=== PATIENT | female | born 1940 | race Asian ===

== ENCOUNTER 2019-05-06 08:20 | Inpatient (IN) | payer MEDICARE ==
[~2019-05-06] VITALS: Ht 152.4 cm; Wt 38.0 kg
[2019-05-06 08:20] VITALS: Ht 152.4 cm; Wt 38.0 kg
[2019-05-06 08:55] LABS: BASOPHIL % 0.3 % (0-2)
[2019-05-06 08:57] LABS: RED CELL DISTRIBUTION WIDTH 18.3 % (11.5-14.5)
[2019-05-06] MEDS ORDERED: PANTOPRAZOLE SO40 M1 PO (09:33)
[2019-05-06] MEDS ORDERED: MEGL PO (09:34)
[2019-05-06] MEDS ORDERED: NOR10 PO (09:34)
[2019-05-06] MEDS ORDERED: NATURE'S BLEND F1 MG PO (09:34)
[2019-05-06] MEDS ORDERED: [UNRECOGNIZED DRUG - OTHER] PO (09:35)
[2019-05-06] MEDS ORDERED: SODIUM BICARBO650 MG PO (09:35)
[2019-05-06] MEDS ORDERED: CALCIUM CIT PO (09:35)
[2019-05-06 09:37] LABS: PLATELET COUNT 508 x10^3mcL (130-400)
[2019-05-06 09:56] LABS: ALKALINE PHOSPHATASE 80 U/L (46-116); ALT/SGPT 24 U/L (14-59); AST/SGOT 23 U/L (15-37); BILIRUBIN TOTAL 0.4 mg/dL (0.20-1.00); CALCIUM 8.8 mg/dL (8.5-10.1); CARBON DIOXIDE 19.2 mmol/L (21-32); CHLORIDE SERUM 97 mmol/L (98-107); GLUCOSE SERUM 173 mg/dL (74-106); SODIUM SERUM 139 mmol/L (136-145)
[2019-05-06 10:01] LABS: ALBUMIN 2.8 g/dL (3.4-5.0)
[2019-05-06 10:02] LABS: POTASSIUM SERUM 7.1 mmol/L (3.5-5.1)
[2019-05-06 10:03] LABS: CREATININE SERUM 9.6 mg/dL (0.6-1.0)
[2019-05-06 13:52] LABS: MAGNESIUM 2.4 mg/dL (1.8-2.4)
[2019-05-06 14:00] VITALS: BP 130/68
[2019-05-06 14:36] LABS: PHOSPHOROUS 6.5 mg/dL (2.5-4.9)
[2019-05-06 17:23] VITALS: BP 150/89
[2019-05-06 21:10] VITALS: BP 153/86
[2019-05-07 06:09] VITALS: BP 131/85
[2019-05-07 08:07] LABS: CALCIUM 9.6 mg/dL (8.5-10.1); CARBON DIOXIDE 23.4 mmol/L (21-32); CHLORIDE SERUM 95 mmol/L (98-107); GLUCOSE SERUM 91 mg/dL (74-106); SODIUM SERUM 139 mmol/L (136-145)
[2019-05-07 08:23] LABS: CREATININE SERUM 7.4 mg/dL (0.6-1.0); POTASSIUM SERUM 7.2 mmol/L (3.5-5.1)
[2019-05-07 08:52] LABS: BASOPHIL % 0 % (0-2); PLATELET COUNT 430 x10^3mcL (130-400)
[2019-05-07 14:49] LABS: CALCIUM 9.3 mg/dL (8.5-10.1); CARBON DIOXIDE 25.8 mmol/L (21-32); CHLORIDE SERUM 96 mmol/L (98-107); GLUCOSE SERUM 103 mg/dL (74-106); SODIUM SERUM 140 mmol/L (136-145)
[2019-05-07 15:44] LABS: CREATININE SERUM 8.1 mg/dL (0.6-1.0); POTASSIUM SERUM 7.2 mmol/L (3.5-5.1)
[2019-05-07 17:04] VITALS: BP 133/82
[2019-05-07 21:14] VITALS: BP 116/69
[2019-05-08 05:59] VITALS: BP 120/76
[2019-05-08 08:40] VITALS: BP 130/77
[2019-05-08 09:51] LABS: CALCIUM 8.7 mg/dL (8.5-10.1); CARBON DIOXIDE 24.2 mmol/L (21-32); CHLORIDE SERUM 92 mmol/L (98-107); GLUCOSE SERUM 73 mg/dL (74-106); SODIUM SERUM 134 mmol/L (136-145)
[2019-05-08 09:53] LABS: CREATININE SERUM 5.6 mg/dL (0.6-1.0); POTASSIUM SERUM 5.9 mmol/L (3.5-5.1)
[2019-05-08 10:18] LABS: SODIUM SERUM 135 mmol/L (136-145)
[2019-05-08 10:22] LABS: POTASSIUM SERUM 6.1 mmol/L (3.5-5.1)
[2019-05-08 10:23] LABS: CARBON DIOXIDE 29.6 mmol/L (21-32); CHLORIDE SERUM 92 mmol/L (98-107); GLUCOSE SERUM 62 mg/dL (74-106)
[2019-05-08 10:24] LABS: CREATININE SERUM 5.3 mg/dL (0.6-1.0)
[2019-05-08 10:25] LABS: CALCIUM 9.1 mg/dL (8.5-10.1)
[2019-05-08 11:51] VITALS: BP 130/101
[2019-05-08 16:08] VITALS: BP 132/74
[2019-05-08 20:59] VITALS: BP 130/71
[2019-05-09 06:05] VITALS: BP 132/78
[2019-05-09 07:53] VITALS: BP 132/78
[2019-05-09 08:30] LABS: PLATELET COUNT 329 x10^3mcL (130-400)
[2019-05-09 08:40] VITALS: BP 126/69
[2019-05-09 10:19] LABS: BASOPHIL % 0 % (0-2); RED CELL DISTRIBUTION WIDTH 17.5 % (11.5-14.5)
[2019-05-09 10:24] LABS: CALCIUM 8.6 mg/dL (8.5-10.1); CARBON DIOXIDE 25.8 mmol/L (21-32); CHLORIDE SERUM 93 mmol/L (98-107); GLUCOSE SERUM 76 mg/dL (74-106); SODIUM SERUM 133 mmol/L (136-145)
[2019-05-09 10:39] LABS: CREATININE SERUM 7.9 mg/dL (0.6-1.0)
[2019-05-09 10:40] LABS: POTASSIUM SERUM 6.4 mmol/L (3.5-5.1)
[2019-05-09 12:49] VITALS: BP 117/65
[2019-05-09 13:24] LABS: CALCIUM 9.3 mg/dL (8.5-10.1); CARBON DIOXIDE 24.5 mmol/L (21-32); CHLORIDE SERUM 94 mmol/L (98-107); GLUCOSE SERUM 77 mg/dL (74-106); SODIUM SERUM 134 mmol/L (136-145)
[2019-05-09 13:36] LABS: CREATININE SERUM 6.6 mg/dL (0.6-1.0); POTASSIUM SERUM 5.9 mmol/L (3.5-5.1)
[2019-05-09 15:37] VITALS: BP 128/73
[2019-05-09 20:49] VITALS: BP 135/77
[2019-05-10 05:34] VITALS: BP 127/76
[2019-05-10 08:29] LABS: BASOPHIL % 0.7 % (0-2); PLATELET COUNT 389 x10^3mcL (130-400)
[2019-05-10 08:44] VITALS: BP 144/81
[2019-05-10 09:00] LABS: CHLORIDE SERUM 93 mmol/L (98-107); SODIUM SERUM 134 mmol/L (136-145)
[2019-05-10 09:31] LABS: CALCIUM 8.8 mg/dL (8.5-10.1); GLUCOSE SERUM 87 mg/dL (74-106)
[2019-05-10 09:37] LABS: CREATININE SERUM 8.5 mg/dL (0.6-1.0); POTASSIUM SERUM 5.8 mmol/L (3.5-5.1)
[2019-05-10 12:32] VITALS: BP 147/77
[2019-05-10 16:45] VITALS: BP 126/66
[2019-05-10 16:46] VITALS: BP 85/28
[2019-05-10 21:00] VITALS: BP 145/77
[2019-05-11 05:40] VITALS: BP 157/83
[2019-05-11 06:47] LABS: CALCIUM 8.8 mg/dL (8.5-10.1); CARBON DIOXIDE 20.2 mmol/L (21-32); CHLORIDE SERUM 91 mmol/L (98-107); GLUCOSE SERUM 97 mg/dL (74-106); SODIUM SERUM 133 mmol/L (136-145)
[2019-05-11 07:28] LABS: POTASSIUM SERUM 6.3 mmol/L (3.5-5.1)
[2019-05-11 07:29] LABS: CREATININE SERUM 10.1 mg/dL (0.6-1.0)
[2019-05-11 07:31] LABS: PLATELET COUNT 324 x10^3mcL (130-400)
[2019-05-11 07:33] LABS: RED CELL DISTRIBUTION WIDTH 17.8 % (11.5-14.5)
[2019-05-11 09:14] VITALS: BP 134/77
[2019-05-11 12:02] LABS: BAND NEUTROPHIL 1 % (0-10); BASOPHIL 0 % (0-2); MONOCYTE 5 % (0-7); PLATELET MORPHOLOGY PLATELETS NORMAL; SEGMENTED NEUTROPHILS 86 % (37-75); rbc morphology (normal/abnorm) ABNORMAL (NORMAL)
== END 2019-05-11 11:35 | disposition hospice, home (50) | DRG 682 ==
LOC: EDBD 08:20 → ED 08:20 → EDBD 12:00 → DU 12:00
PROVIDERS: Emergency Medicine; Internal Medicine; ADMIT General Practice
DX: N18.6 End stage renal disease (principal); J96.01 Acute respiratory failure with hypoxia; C78.02 Secondary malignant neoplasm of left lung; C78.01 Secondary malignant neoplasm of right lung; J90 Pleural effusion, not elsewhere classified; E87.79 Other fluid overload; E87.5 Hyperkalemia; Z66 Do not resuscitate; Z90.5 Acquired absence of kidney; Z99.2 Dependence on renal dialysis; Z68.20 Body mass index [BMI] 20.0-20.9, adult; Z85.528 Personal history of other malignant neoplasm of kidney
CPT/HCPCS: 82962; B4164; G0378; J0295; J0696; J1644; J2060; J2270; J7030; J7050; Q0092